=== PATIENT | female | born 1985 | race Caucasian/White ===

== ENCOUNTER 2017-12-28 07:30 | Emergency (ER) | payer SELFPAY ==
[~2017-12-28] VITALS: Ht 175.3 cm; Wt 72.6 kg
[2017-12-28] MEDS ORDERED: CORTISPORIN CR7.5 GM AS (07:54)
[2017-12-28] MEDS ORDERED: AMOXICILLIN500 M1 PO (07:54)
[2017-12-28] MEDS ORDERED: NORCO 5-325 TA1 EACH PO (07:54)
--- OUTSIDE RECORDS SUMMARY | 2017-12-28 07:54 | XMS | Clinical Summary ---
Demographics + + + | Address | [address] | | | [place] [address] | + + + | Home Phone | | + + + | Preferred Language | Unknown | + + + | Marital Status | Single | + + + | Judaism Affiliation | NON | + + + | Race | White | + + + | Ethnic Group | Not or | + + + Author + + + | Author | [facility] | + + + | Organization | [facility] | + + + | Address | Unknown | + + + | Phone | Unavailable | + + + Support + + +---------+ + | Name | Relationship | Address | Phone | + + +---------+ + | Radha Haque | ECON | Unknown | | + + +---------+ + Care Team Providers + +------+ + | Care Health Education Teacher Name | Role | Phone | + +------+ + | No Pcp Per Patient | PP | Unavailable | + +------+ + Source Comments [facility] is fully live on both [facility] and [facility] Allergies No Known Allergies Current Medications + + +--------+---------+------+------+-------+ | Prescription | Sig. | Disp. | Refills | Star | End | Statu | | | | | | t | Date | s | | | | | | Date | | | + + +--------+---------+------+------+-------+ | sumatriptan 25 mg | Take 1 Tab by mouth | 10 | 0 | 08/0 | | Activ | | Oral | as needed for | | | 3/20 | | e | | TabletIndications: | migraine. Administer | | | 09 | | | | Head ache, Migraine | with fluids. A | | | | | | | headache | second dose may be | | | | | | | | administered in 2 | | | | | | | | hours if a | | | | | | | | satisfactory | | | | | | | | response has not | | | | | | | | been obtained. Max | | | | | | | | dose: 200 mg/day. | | | | | | + + +--------+---------+------+------+-------+ | carbamide peroxide | Instill 1-5 Drops | 1 | 0 | 12/1 | | Activ | | (DEBROX) 6.5 % Otic | into both ears two | bottle | | 0/20 | | e | | DropsIndications: | times daily. Use up | | | 09 | | | | Cerumen impaction | to 4 days. | | | | | | + + +--------+---------+------+------+-------+ | NAPROXEN SODIUM | Take 220 mg by mouth | | | | | Activ | | (ALEVE ORAL) | two times daily. | | | | | e | + + +--------+---------+------+------+-------+ Active Problems + + + | Problem | Noted Date | + + + | Migraine headache | 05/18/2011 | + + + | Psychosis | 05/18/2011 | + + + | Head ache | 05/18/2011 | + + + | ASCUS on Pap smear | 06/23/2009 | + + + Family History + + +------+ + | Medical History | Relation | Name | Comments | + + +------+ + | Additional Family | Brother | | Born with hydrocephalus | | History | | | | + + +------+ + | Additional Family | Mother | | Migraines | | History | | | | + + +------+ + | Cancer | Mother | | breast CA,, "distant relatives" | + + +------+ + + +------+--------+ + | Relation | Name | Status | Comments | + +------+--------+ + | Brother | | | | + +------+--------+ + | Mother | | | | + +------+--------+ + Social History + + + +--------+------+ | Tobacco Use | Types | Packs/Day | Years | Date | | | | | Used | | + + + +--------+------+ | Current Every Day | Cigarettes | 0.5 | | | | Smoker | | | | | + + + +--------+------+ + + | Comments: 8 cigs/2 years | + + + + +---------+ + | Alcohol Use | Drinks/We | oz/Week | Comments | | | ek | | | + + +---------+ + | Yes | | | socially | + + +---------+ + + + + | Sex Assigned at | Date Recorded | | | | + + + | Not on file | | + + + Last Filed Vital Signs + + + + | Vital Sign | Reading | Time Taken | + + + + | Blood Pressure | 110/61 | 05/23/2011 8:03 AM PDT | + + + + | Pulse | 54 | 05/23/2011 8:03 AM PDT | + + + + | Temperature | 35.8 C (96.5 F) | 05/23/2011 8:03 AM PDT | + + + + | Respiratory Rate | 16 | 05/23/2011 8:03 AM PDT | + + + + | Oxygen Saturation | 96% | 05/17/2011 8:05 PM PDT | + + + + | Inhaled Oxygen | - | - | | Concentration | | | + + + + | Weight | 59 kg (130 lb) | 05/18/2011 2:53 AM PDT | + + + + | Height | 170.2 cm (5' 7.01") | 05/18/2011 2:53 AM PDT | + + + + | Body Mass Index | 20.36 | 05/18/2011 2:53 AM PDT | + + + + Plan of Treatment + + + + + | Health Maintenance | Due Date | Last Done | Comments | + + + + + | INFLUENZA VACCINE | | | | | (FLU SHOT) | 8 | | | + + + + + Results Not on filefrom Last 3 Months
--- OUTSIDE RECORDS SUMMARY | 2017-12-28 07:54 | XMS | Clinical Summary ---
Demographics + + + | Address | [address] | | | [place] [address] | + + + | Home Phone | | + + + | Preferred Language | Unknown | + + + | Marital Status | Single | + + + | Pentecostal Affiliation | NON | + + + [...] Team Providers + +------+ + | Care Analytical Strategist Name | Role | Phone | + +------+ + | No Pcp Per Patient | PP | Unavailable | + +------+ + Source Comments [facility] is fully live on both [facility] and [facility] Allergies No Known Allergies Current Medications [...]
== END 2017-12-28 08:11 | disposition home or self-care (01) ==
LOC: ED 07:30
DX: H66.92 Otitis media, unspecified, left ear (principal); H60.92 Unspecified otitis externa, left ear; R59.1 Generalized enlarged lymph nodes; F17.200 Nicotine dependence, unspecified, uncomplicated
CPT/HCPCS: 99283

== ENCOUNTER 2022-01-07 06:41 | Emergency (ER) | payer SELFPAY ==
[~2022-01-07] VITALS: Ht 177.8 cm; Wt 113.4 kg
[~2022-01-07 06:41] MED LIST: AMOXICILLIN500 M1 PO; CORTISPORIN CR7.5 GM AS; NORCO 5-325 TA1 EACH PO
[2022-01-07] MEDS ORDERED: BENZONATATE100 MG PO (08:05)
[2022-01-07] MEDS ORDERED: PREDNISONE20 MG PO (08:05)
[2022-01-07] MEDS ORDERED: CYCLOBENZAPRINE10 MG PO (08:05)
== END 2022-01-07 08:23 | disposition home or self-care (01) ==
LOC: ED 06:41
DX: U07.1 COVID-19 (principal); F17.200 Nicotine dependence, unspecified, uncomplicated
CPT/HCPCS: 71045; 94640; 94664; 96372; 99283-25; J1885